=== PATIENT | female | born 1970 | race Caucasian/White ===

== ENCOUNTER 2017-10-09 11:22 | Outpatient (CLI) | payer OTHER | END 2017-10-09 11:23 | disposition home or self-care (01) | LOC: BICMAMMO 11:22 | DX: N60.09 Solitary cyst of unspecified breast (principal) | CPT/HCPCS: 77066; G0279 ==

== ENCOUNTER 2017-10-25 09:42 | Outpatient (CLI) | payer OTHER | END 2017-10-25 09:43 | disposition home or self-care (01) | LOC: BICMAMMO 09:42 | DX: Z13.820 Encounter for screening for osteoporosis (principal); M85.80 Other specified disorders of bone density and structure, unspecified site | CPT/HCPCS: 77080 ==

== ENCOUNTER → 2017-11-23 | Day surgery (SDC) | payer OTHER | LOC: BICULT 11:41 | PROC: 0H9T3ZX Drainage of Right Breast, Percutaneous Approach, Diagnostic (ICD-10-PCS; principal; 2017-11-23) | DX: N60.01 Solitary cyst of right breast (principal) | CPT/HCPCS: 10022; 76942; 88173 ==

== ENCOUNTER 2019-12-30 09:22 | Outpatient (CLI) | payer OTHER ==
--- NOTE | 2019-12-30 09:44 | BD ---
EXAM: DEXA bone density examination HISTORY: 49-year-old postmenopausal female for screening COMPARISON: None FINDINGS: L1--bone mineral density 0.829 g/sq cm; T score -1.5 L2--bone mineral density 0.853 g/sq cm; T score -1.6 L3--bone mineral density 0.892 g/sq cm; T score -1.7 L4--bone mineral density 0.925 g/sq cm; T score -1.2 Total L1-L4--bone mineral density 0.876 g/sq cm; T score -1.6 Left femoral neck--bone mineral density0.777; T score -0.6 Total proximal left femur--bone mineral density 0.845; T score -0.8 IMPRESSION: Osteopenia.
== END 2019-12-30 09:23 | disposition home or self-care (01) ==
LOC: BICMAMMO 09:22
PROVIDERS: ATTEND Student in an Organized Health Care Education/Training Program
DX: Z13.820 Encounter for screening for osteoporosis (principal); M85.88 Other specified disorders of bone density and structure, other site
CPT/HCPCS: 77080

== ENCOUNTER 2022-01-27 13:49 | Outpatient (CLI) | payer BC | END 2022-01-27 13:50 | disposition home or self-care (01) | LOC: BICMAMMO 13:49 | PROVIDERS: ATTEND Student in an Organized Health Care Education/Training Program | DX: Z13.820 Encounter for screening for osteoporosis (principal); M85.89 Other specified disorders of bone density and structure, multiple sites | CPT/HCPCS: 77080 ==

== ENCOUNTER 2024-08-16 13:34 | Outpatient (CLI) | payer BC | END 2024-08-16 13:35 | disposition home or self-care (01) | LOC: CT 13:34 | PROVIDERS: ATTEND Thoracic Surgery (Cardiothoracic Vascular Surgery) | DX: I71.20 Thoracic aortic aneurysm, without rupture, unspecified (principal) | CPT/HCPCS: 71250 ==